=== PATIENT | male | born 1970 | race American Indian/Alaskan Native ===

== ENCOUNTER 2018-12-05 11:28 | Emergency (ER) | payer MEDICAID ==
[2018-12-05] MEDS ORDERED: Ketorolac 60 MG/2 ML SDV IM ONE (12:12)
[2018-12-05] MEDS ORDERED: Cyclobenzaprine 10 MG Tab PO ONE (12:12)
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
--- NOTE | 2018-12-05 13:12 | CRLCR ---
Indication: Chest pain Technique: Chest 2 views Comparison: None Findings: Cardiovascular and mediastinum: Heart size and vasculature are normal in caliber and appearance. Lungs and pleural spaces: Lungs are clear. No sign of infiltrate or mass. No sign of pleural effusion. No pneumothorax. Bones and soft tissues: No significant findings. Impression: No acute or significant findings. Dictated by Russell Javier MD @ 12/05/2018 1:11:20 PM Dictated by: Russell Javier MD @ 12/05/2018 13:11:24 (Electronically Signed)
--- NOTE | 2018-12-05 13:14 | CRLCR ---
Indication: Shoulder pain Technique: Right shoulder 3 views Comparison: None Findings: Bones: Alignment is normal. No fractures or bone lesions. There is spurring in the distal head of the clavicle. Joint spaces: Osteoarthritis is in the glenohumeral joint. Less severe arthritic changes are in the AC joint. Soft tissues: Unremarkable. Impression: No acute abnormality. Osteoarthritis in the glenohumeral joint and to a lesser extent the AC joint. Dictated by Russell Javier MD @ 12/05/2018 1:13:14 PM Dictated by: Russell Javier MD @ 12/05/2018 13:13:20 (Electronically Signed)
--- NOTE | 2018-12-05 13:17 | CRLCR ---
Indication: Knee pain Technique: Right knee 3 views Comparison: None Findings: Bones: Alignment is normal. No fractures or bone lesions. Joint spaces: Joint spaces are well maintained. No degenerative changes. No sign of joint effusion. Soft tissues: Unremarkable. Impression: No findings to explain pain. Dictated by Russell Javier MD @ 12/05/2018 1:15:11 PM Dictated by: Russell Javier MD @ 12/05/2018 13:15:16 (Electronically Signed)
--- NOTE | 2018-12-05 13:19 | CRLCR ---
Indication: Right wrist pain Technique: Right wrist 3 views Comparison: None Findings: Bones: Alignment is normal. No fractures or bone lesions. Joint spaces: Joint spaces are well maintained. No degenerative changes. Soft tissues: Unremarkable. Impression: No findings to explain pain. Dictated by Russell Javier MD @ 12/05/2018 1:17:11 PM Dictated by: Russell Javier MD @ 12/05/2018 13:17:14 (Electronically Signed)
== END 2018-12-05 14:30 | disposition home or self-care (01) ==
LOC: JP.ED 11:28
DX: S40.011A Contusion of right shoulder, initial encounter (principal); W19.XXXA Unspecified fall, initial encounter; F17.210 Nicotine dependence, cigarettes, uncomplicated
CPT/HCPCS: 71046; 73030; 73110; 73562; 96372; 99284; A9270; J1885